=== PATIENT | female | born 1950 | race Caucasian/White ===

== ENCOUNTER 2024-10-07 15:49 | Emergency (ER) | payer MEDICARE ==
[~2024-10-07] VITALS: Ht 172.7 cm; Wt 98.2 kg
[2024-10-07 15:53] VITALS: TEMP 98.2
[2024-10-07] MEDS ORDERED: ROSU10TA61 PO (16:04)
[2024-10-07] MEDS: MORPHINE 4 MG/ML 1ML VIAL IV ONE (16:26)
[2024-10-07] MEDS: BOOSTRIX VACCINE (TETANUS/DIPHTH/ACEL. PERTUSSIS) 0.5ML SYR IM.IMMUN ONE (16:28)
[2024-10-07 16:55] LABS: BASO % 0.5 % (0.0-1.0); EOS # 0.1 10^3/uL (0.0-0.5); EOS % 1.8 % (0.0-3.0); HEMATOCRIT 40.3 % (36.0-47.0); HEMOGLOBIN 13.7 g/dl (12.0-15.5); LYMPH # 1.8 10^3/uL (1.5-5.0); LYMPH % 23.1 % (24.0-44.0); MEAN CORPUSCULAR HEMOGLOBIN 32.1 pg (27.0-33.0); MEAN CORPUSCULAR VOLUME 94.4 fl (80.0-96.0); MONO # 0.5 10^3/uL (0.0-0.8); MONO % 6.9 % (2.0-8.0); NEUTROPHILS # 5.2 10^3/uL (1.5-8.5); NEUTROPHILS % 67.2 % (36.0-66.0); PLATELET COUNT, AUTOMATED 228 10^3/uL (150-450); RED BLOOD COUNT 4.27 10^6/uL (4.00-5.40); WHITE BLOOD COUNT 7.7 10^3/uL (4.0-10.0)
[2024-10-07 17:00] LABS: BLOOD UREA NITROGEN 13 MG/DL (9-23); CALCIUM LEVEL 8.9 MG/DL (8.3-10.6); CARBON DIOXIDE LEVEL 26 MMOL/L (20-31); CHLORIDE LEVEL 108 MMOL/L (98-107); CREATININE FOR GFR 0.58 MG/DL (0.55-1.30); GLOMERULAR FILTRATION RATE > 60.0 (>39); GLUCOSE, FASTING 137 MG/DL (74-106); POTASSIUM SERUM 4.1 MMOL/L (3.5-5.1); SODIUM LEVEL 142 MMOL/L (136-145)
[2024-10-07] MEDS ORDERED: LIDOCAINE 1% MDV 20ML VIAL As Ordered ONE (17:30)
[2024-10-07] MEDS: LIDOCAINE 1% MDV 20ML VIAL SC ONE ×2 (17:30→18:22)
[2024-10-07] MEDS: fentaNYL 100 MCG/2 ML INJECTION IV ONE (18:21)
[2024-10-07 20:00] VITALS: BP 178/91; O2SAT 92
[2024-10-07] MEDS ORDERED: PERC5TAB12 PO (20:09)
[2024-10-07] MEDS: OXYCODONE/APAP 5MG/325MG(HOME DOSE PACK) PO ONE (20:13)
== END 2024-10-07 20:51 | disposition home or self-care (01) ==
LOC: M ED 15:49
DX: S52.352A Displaced comminuted fracture of shaft of radius, left arm, initial encounter for closed fracture (principal); S01.312A Laceration without foreign body of left ear, initial encounter; Y92.019 Unspecified place in single-family (private) house as the place of occurrence of the external cause; Y93.9 Activity, unspecified; Y99.9 Unspecified external cause status; W18.2XXA Fall in (into) shower or empty bathtub, initial encounter; E78.5 Hyperlipidemia, unspecified; F17.210 Nicotine dependence, cigarettes, uncomplicated; Z23 Encounter for immunization; Z79.899 Other long term (current) drug therapy
CPT/HCPCS: 13151; 25605; 70450; 72125; 73080; 73090; 73100; 73110; 73130; 80048; 85025; 90471; 90715; 93041; 94760; 96372; 96374; 96375; 99285; J3010